=== PATIENT | female | born 1955 | race African-American/Black ===

== ENCOUNTER 2016-12-20 13:25 | Emergency (ER) | payer MEDICAID ==
[~2016-12-20] VITALS: Ht 165.1 cm; Wt 61.0 kg
[2016-12-20] MEDS ORDERED: IBUPROFEN 600MG TABLET PO ONE (15:15)
[2016-12-20 17:43] VITALS: BP 132/89
== END 2016-12-20 17:58 | disposition home or self-care (01) ==
LOC: ER 14:09
DX: M47.892 Other spondylosis, cervical region (principal); F17.200 Nicotine dependence, unspecified, uncomplicated
CPT/HCPCS: 72040; 99284